=== PATIENT | female | born 1945 | race Caucasian/White ===

== ENCOUNTER 2018-06-08 15:10 | Outpatient (CLI) | payer MEDICARE, BC ==
--- NOTE | 2018-06-08 16:41 | CT ---
NONCONTRAST CT OF THE BRAIN: Date: 06/08/18 INDICATION: History of stroke. FINDINGS: There is a subacute to chronic-appearing stroke involving the inferior aspect of the right cerebellum . No intracranial hemorrhage is evident. There is mild chronic small vessel white matter ischemic ch sarah beth. Septum pellucidum and third ventricle are midline. Mastoid air cells and paranasal sinuses are clear. Skull is intact. IMPRESSION: 1. Chronic-appearing right inferior cerebellar hemisphere infarct. No intracranial hemorrhage demons trated. No midline shift seen. 2. Mild chronic small vessel white matter ischemic change. POS: NICHOL
== END 2018-06-08 15:11 | disposition home or self-care (01) ==
LOC: SCSCT 15:10
PROVIDERS: ATTEND Neurological Surgery
DX: I61.9 Nontraumatic intracerebral hemorrhage, unspecified (principal); I63.9 Cerebral infarction, unspecified; R90.82 White matter disease, unspecified
CPT/HCPCS: 70450